=== PATIENT | female | born 1930 | race Caucasian/White ===

== ENCOUNTER 2020-02-09 17:46 | Emergency (ER) | payer MEDICARE, BC ==
[~2020-02-09] VITALS: Ht 167.6 cm; Wt 73.9 kg
[~2020-02-09 17:46] MED LIST: AMLO-150 PO; METO25TA35 PO
--- NOTE | 2020-02-09 18:15 | NUR ---
wheeled to room. as
[2020-02-09] MEDS ORDERED: LISI-170 PO (18:40)
[2020-02-09] MEDS ORDERED: INDO50CA15 PO (18:40)
[2020-02-09] MEDS ORDERED: CARV-39 PO (18:40)
--- NOTE | 2020-02-09 18:40 | NUR ---
PIV EST. BRAVO IN ROOM FOR EVAL. LABS DRAWN. PT A&OX4 GCS 15. PEARRL 3 MM. EQUAL GRASPS. NUMNBESS TO R HAND. R LEG VREY SLIGHTLY WEAKER THAN L LEG. NO DRIFT/NO DROOP. CALL AMENA MANCIA, DAUGHTER AT BEDSIDE.
[2020-02-09 18:43] LABS: BASOPHILS % (AUTO) 1 % (0-1); EOSINOPHILS % (AUTO) 3 % (1-7); LYMPHOCYTES % (AUTO) 26 % (22-44); MEAN CORPUSCULAR HEMOGLOBIN 30.3 pg (27.0-34.8); MEAN CORPUSCULAR HGB CONC 32.5 g/dL (32.4-35.8); MEAN PLATELET VOLUME 8.8 fL (7.4-10.4); MONOCYTES % (AUTO) 6 % (2-9); NEUTROPHILS % (AUTO) 64 % (42-75); PLATELET COUNT 306 x10^3/uL (130-400); RED BLOOD COUNT 4.64 x10^6/uL (3.82-5.3); RED CELL DISTRIBUTION WIDTH 15.4 % (9.6-15.2)
[2020-02-09 18:46] LABS: MD NO
[2020-02-09 18:52] LABS: ALBUMIN 3.4 g/dL (3.4-5.0); ANION GAP 6 mmol/L (5-15); CALCIUM 8.8 mg/dL (8.5-10.1); CHLORIDE 107 mmol/L (98-107); CREATININE 1.54 mg/dL (0.55-1.02)
--- NOTE | 2020-02-09 19:17 | NUR ---
REPORT FROM YONY SALEEM.
--- NOTE | 2020-02-09 19:18 | NUR ---
REPORT TO RASHI SALEEM.
[2020-02-09] MEDS ORDERED: LABETALOL 5MG/ML, 20ML ONE (19:36)
--- NOTE | 2020-02-09 19:40 | NUR ---
BP UP TO 241/114. LABETALOL IV PER MAY.
[2020-02-09] MEDS ORDERED: LABETALOL 5MG/ML, 20ML IVPush ONE (20:54)
[2020-02-09 21:11] VITALS: BP 178/74
== END 2020-02-09 21:13 | disposition home or self-care (01) ==
LOC: ED 20:32
DX: R20.2 Paresthesia of skin (principal); I10 Essential (primary) hypertension; R94.31 Abnormal electrocardiogram [ECG] [EKG]; I44.0 Atrioventricular block, first degree
CPT/HCPCS: 36415; 70450; 80048; 82040; 85025; 93005; 99285